=== PATIENT | female | born 1975 | race Caucasian/White ===

== ENCOUNTER 2017-05-28 22:22 | Emergency (ER) | payer OTHER ==
[2017-05-28 22:49] VITALS: BP 145/91; PULSE 70; TEMP 97.9; BMI 26.5
[2017-05-29] MEDS ORDERED: METOCLOPRAMIDE HCL INJECTION 10 MG/2 ML VIAL IVPUSH ONE (00:58)
[2017-05-29] MEDS ORDERED: KETOROLAC TROMETHAMINE 30 MG/1 ML VIAL IVPUSH ONE (00:58)
[2017-05-29] MEDS ORDERED: SODIUM CHLORIDE 0.9% 500 ML INFUS.BAG IV ONE (00:58)
[2017-05-29] MEDS ORDERED: KETOROLAC TROMETHAMINE 30 MG/1 ML VIAL ONE (01:04)
[2017-05-29] MEDS ORDERED: METOCLOPRAMIDE HCL INJECTION 10 MG/2 ML VIAL ONE (01:04)
[2017-05-29] MEDS ORDERED: HEPARIN NA (PORCINE) 5,000 UNITS/ML 1ML VIAL ONE (01:04)
--- NOTE | 2017-05-29 01:12 | PDOC ---
History of Present Illness - General Chief Complaint: Headache Stated Complaint: HEADACHE Time Seen by Provider: 05/29/17 00:17 - History of Present Illness Initial Comments: 05/29/17 01:09 CHIEF COMPLAINT: headache HISTORY OF PRESENT ILLNESS: 41 yo F with hx of headaches presents to ED with headache x 3 days. Patient reports the pain is to the right frontal aspect of her head and feels like it is throbbing. She reports photophobia and that "I am tearing a lot." She denies any blurry vision, weakness, fever, chills, nausea, vomiting, or diarrhea. No recent travel or sick contacts. PAST MEDICAL HISTORY: Denies past medical history FAMILY HISTORY: Denies SOCIAL HISTORY: Denies tobacco, alcohol, illicit drug use. SURGICAL HISTORY: Denies ALLERGIES: No known drug allergies REVIEW OF SYSTEMS General/Constitutional: Denies fever or chills. Denies weakness, weight change. HEENT: Denies change in vision. Denies ear pain or discharge. Denies sore throat. Cardiovascular: Denies chest pain or shortness of breath. Respiratory: Denies cough, wheezing, or hemoptysis. Gastrointestinal: Denies nausea, vomiting, diarrhea or constipation. Denies rectal bleeding. Genitourinary: Denies dysuria, frequency, or change in urination. Musculoskeletal: Denies joint or muscle swelling or pain. Denies neck or back pain. Skin and breasts: Denies rash or easy bruising. Neurologic: Headache x 3 days. Denies vertigo, loss of consciousness, or loss of sensation. PHYSICAL EXAM General Appearance: Well-appearing, appropriately dressed. No apparent distress. HEENT: EOMI, PERRLA. No conjunctival pallor. No photophobia, scleral icterus. Respiratory/Chest: Lungs CTAB. Cardiovascular: RRR. S1, S2. Musculoskeletal/Extremities: Normal inspection. FROM of all extremities, normal capillary refill. Pelvis Stable. No CVA tenderness. No tenderness to extremities, pedal edema, swelling, erythema or deformity. Integumentary: Appropriate color, dry, warm. No cyanosis, erythema, jaundice or rash Neurologic: probation and patrol agent II-XII intact. Fully oriented, alert. Appropriate mood/affect. Motor strength 5/5. No appreciable EOM palsy, facial droop or sensory deficit. Past History - Past Medical History Allergies/Adverse Reactions: Allergies Allergy/AdvReac Type Severity Reaction Status Date / Time No Known Drug Allergies Allergy Verified 05/28/17 22:46 Home Medications: Ambulatory Orders Aspirin/Acetaminophen/Caffeine [Excedrin Migraine Caplet] 1 each PO TID PRN #21 tablet 05/29/17 Anemia: Yes (H/O) Asthma: No Cancer: No Cardiac Disorders: No COPD: No Diabetes: No HTN: No Seizures: No Thyroid Disease: No - Suicide/Smoking/Psychosocial Hx Smoking Status: No Smoking History: Never smoked Have you smoked in the past 12 months: No Number of Cigarettes Smoked Daily: 0 Hx Alcohol Use: No Drug/Substance Use Hx: No Substance Use Type: Alcohol Hx Substance Use Treatment: No *Physical Exam - Vital Signs Last Vital Signs Temp Pulse Resp BP Pulse Ox 97.9 F 70 18 145/91 100 05/28/17 22:47 05/28/17 22:47 05/28/17 22:47 05/28/17 22:47 05/28/17 22:47 Medical Decision Making - Medical Decision Making 05/29/17 01:12 41 yo F with hx of headaches presents to ED with headache x 3 days. -Toradol, Reglan, Benadryl *DC/Admit/Observation/Transfer Diagnosis at time of Disposition: Migraine Qualifiers: Migraine type: unspecified Status migrainosus presence: without status migrainosus Intractability: not intractable Qualified Code(s): G43.909 - Migraine, unspecified, not intractable, without status migrainosus - Discharge Dispostion Disposition: HOME Condition at time of disposition: Stable Admit: No - Prescriptions Prescriptions: Aspirin/Acetaminophen/Caffeine [Excedrin Migraine Caplet] 1 each PO TID PRN #21 tablet PRN Reason: Headache - Referrals Referrals: Eddie Montiel MD [Staff Physician] - Genesis Haque MD [Staff Physician] - - Patient Instructions Printed Discharge Instructions: DI for Migraine Additional Instructions: Please take medications as prescribed. Follow up with neurology within the next week. If you develop any sudden, sharp headache, the "worst headache of your life," sudden weakness to one side, blurry vision, difficulty speaking/ swallowing/walking, please return to the ER immediately. Print Language: MONGOLIAN - Post Discharge Activity
--- NOTE | 2017-05-29 01:19 | PDOC ---
*Physical Exam - Vital Signs Last Vital Signs Temp Pulse Resp BP Pulse Ox 97.9 F 70 18 145/91 100 05/28/17 22:47 05/28/17 22:47 05/28/17 22:47 05/28/17 22:47 05/28/17 22:47 Medical Decision Making - Medical Decision Making 05/29/17 01:19 agree with care from GEORGIA Cochran *DC/Admit/Observation/Transfer Diagnosis at time of Disposition: Migraine - Discharge Dispostion Disposition: HOME Condition at time of disposition: Stable - Prescriptions Prescriptions: Aspirin/Acetaminophen/Caffeine [Excedrin Migraine Caplet] 1 each PO TID PRN #21 tablet PRN Reason: Headache - Referrals Referrals: Eddie Montiel MD [Staff Physician] - Genesis Haque MD [Staff Physician] - - Patient Instructions Printed Discharge Instructions: DI for Migraine Additional Instructions: Please take medications as prescribed. Follow up with neurology within the next week. If you develop any sudden, sharp headache, the "worst headache of your life," sudden weakness to one side, blurry vision, difficulty speaking/ swallowing/walking, please return to the ER immediately. Print Language: OCCITAN - Post Discharge Activity
== END 2017-05-29 02:47 | disposition home or self-care (01) ==
LOC: JER 22:22
DX: G43.909 Migraine, unspecified, not intractable, without status migrainosus (principal)
CPT/HCPCS: 84703; 99281-25

== ENCOUNTER 2021-01-05 09:43 | Emergency (ER) | payer OTHER ==
[2021-01-05 10:00] VITALS: BP 130/90; PULSE 83; TEMP 98.1; BMI 28.5
[2021-01-05] MEDS ORDERED: KETOROLAC TROMETHAMINE 30 MG/1 ML VIAL IM ONE (12:55)
[2021-01-05] MEDS ORDERED: KETOROLAC TROMETHAMINE 30 MG/1 ML VIAL ONE (12:56)
== END 2021-01-05 12:59 | disposition home or self-care (01) ==
LOC: JER 09:43 → JERFT 09:43
PROC: 3E0233Z Introduction of Anti-inflammatory into Muscle, Percutaneous Approach (ICD-10-PCS; principal; 2021-01-05)
DX: G44.89 Other headache syndrome (principal); S09.90XA Unspecified injury of head, initial encounter
CPT/HCPCS: 70450-TC; 99284-25

== ENCOUNTER 2022-08-23 21:01 | Emergency (ER) | payer OTHER ==
[2022-08-23 21:11] VITALS: TEMP 98.2; BMI 29.2
[2022-08-23] MEDS ORDERED: FAMOTIDINE 20 MG TABLET PO ONE (23:27)
[2022-08-23] MEDS ORDERED: MAG HYDROX/AL HYDROX/SIMETH 30 ML UNIT-DOSE CUP PO ONE (23:27)
[2022-08-23] MEDS ORDERED: LIDOCAINE VISCOUS 2% ORAL/TOP 15 ML UNIT-DOSE CUP MM ONE (23:28)
[2022-08-23] MEDS ORDERED: LIDOCAINE VISCOUS 2% ORAL/TOP 15 ML UNIT-DOSE CUP ONE (23:42)
[2022-08-23] MEDS ORDERED: MAG HYDROX/AL HYDROX/SIMETH 30 ML UNIT-DOSE CUP ONE (23:43)
[2022-08-23] MEDS ORDERED: FAMOTIDINE 20 MG TABLET ONE (23:43)
[2022-08-24 00:25] LABS: BASO % 0.4 % (0-2.0); EOS % 1.3 % (0-4.5); HEMATOCRIT 42.2 % (32.4-45.2); HEMOGLOBIN 14.6 GM/dL (10.7-15.3); LYMPH % 33.3 % (8-40); MCH 30.5 pg (25.7-33.7); MCHC 34.5 g/dl (32.0-36.0); MEAN CELL VOLUME 88.3 fl (80-96); MEAN PLT VOLUME 8.5 fl (7.5-11.1); PLATELET COUNT 334 10^3/uL (134-434); RBC 4.78 M/mm3 (3.60-5.2); RDW 13.1 % (11.6-15.6); WHITE BLOOD COUNT 7.9 K/mm3 (4.0-10.0)
[2022-08-24 00:32] LABS: EPI CELLS 7 /uL (0-25.1); HYALINE CASTS 0 /uL (0-3.1); PH,URINE 5.5 (5.0-8.0); URINE APPEARANCE CLEAR; URINE BACTERIA 93 /uL (0-1359); URINE BILIRUBIN NEGATIVE (NEGATIVE); URINE COLOR YELLOW; URINE GLUCOSE (UA) NEGATIVE (NEGATIVE); URINE KETONE NEGATIVE (NEGATIVE); URINE LEUK ESTERASE TRACE (NEGATIVE); URINE NITRITE NEGATIVE (NEGATIVE); URINE PROTEIN NEGATIVE (NEGATIVE); URINE RBC 5 /uL (0-23.9); URINE UROBILINOGEN 0.2 mg/dL (0.2-1.0); URINE WBC 26 /uL (0-25.8)
[2022-08-24 00:50] LABS: CALCIUM 9.5 mg/dL (8.5-10.1)
[2022-08-24 00:51] LABS: ALBUMIN 4.1 g/dl (3.4-5.0); BLOOD UREA NITROGEN 11.8 mg/dL (7-18)
[2022-08-24 00:54] LABS: CREATININE 0.7 mg/dL (0.55-1.3)
[2022-08-24 00:56] LABS: BILIRUBIN,TOTAL 0.3 mg/dL (0.2-1); TOT PROT 7.8 g/dl (6.4-8.2)
[2022-08-24] MEDS ORDERED: KETOROLAC TROMETHAMINE 15 MG/ML VIAL IVPUSH ONE (01:10)
[2022-08-24] MEDS ORDERED: SUCRALFATE 1 GM/10 ML UNIT DOSE CUPS PO ONE (01:11)
[2022-08-24] MEDS ORDERED: KETOROLAC TROMETHAMINE 15 MG/ML VIAL ONE (01:22)
[2022-08-24] MEDS ORDERED: SUCRALFATE 1 GM TABLET (FP) ONE (01:23)
[2022-08-24] MEDS ORDERED: SUCRALFATE 1 GM TABLET (FP) PO ONE (01:25)
[2022-08-24 01:37] VITALS: PULSE 77; RESP 18
[2022-08-24 01:46] VITALS: BP 158/86
== END 2022-08-24 01:48 | disposition home or self-care (01) ==
LOC: JER 21:01
PROC: 3E0333Z Introduction of Anti-inflammatory into Peripheral Vein, Percutaneous Approach (ICD-10-PCS; principal; 2022-08-23)
DX: R07.89 Other chest pain (principal); R09.1 Pleurisy; K21.9 Gastro-esophageal reflux disease without esophagitis; R11.0 Nausea
CPT/HCPCS: 36415; 71046-TC-FY; 80053; 81003; 83690; 84484; 84703; 85025; 93005; 93010; 99285-25

== ENCOUNTER 2023-04-03 09:23 | Emergency (ER) | payer OTHER ==
[2023-04-03 09:35] VITALS: BP 127/86; PULSE 93; RESP 18; TEMP 98.1; BMI 30.2
== END 2023-04-03 12:56 | disposition home or self-care (01) ==
LOC: JERFT 09:23
PROC: 0U9GXZZ Drainage of Vagina, External Approach (ICD-10-PCS; principal; 2023-04-03)
DX: N75.1 Abscess of Bartholin's gland (principal)
CPT/HCPCS: 87070; 87205; 99284-25